=== PATIENT | female | born 1940 | race Hispanic/Latino ===

== ENCOUNTER → 2017-07-05 | Outpatient (CLI) | payer MEDICARE, OTHER ==
[~2017-07-05] MED LIST: AEC81 PO; AMIO200T44 PO; CLOP75TA14 PO; GLUC-145 PO; MAGN250T2 PO; METO-408 PO; PANT40TA PO; ROSU20TA PO
== END | disposition home or self-care (01) ==
LOC: SHCH 10:29
PROVIDERS: ATTEND Internal Medicine Cardiovascular Disease
DX: I73.9 Peripheral vascular disease, unspecified (principal)
CPT/HCPCS: 93925

== ENCOUNTER → 2017-09-28 | Outpatient (CLI) | payer MEDICARE, OTHER | END | disposition home or self-care (01) | LOC: SLP 20:17 | PROVIDERS: ATTEND Internal Medicine Cardiovascular Disease | DX: G47.30 Sleep apnea, unspecified (principal); G47.00 Insomnia, unspecified; I25.10 Atherosclerotic heart disease of native coronary artery without angina pectoris; I10 Essential (primary) hypertension | CPT/HCPCS: 95810 ==

== ENCOUNTER → 2017-10-06 | Outpatient (CLI) | payer MEDICARE, OTHER | END | disposition home or self-care (01) | LOC: SLP 20:18 | PROVIDERS: ATTEND Internal Medicine Cardiovascular Disease | DX: G47.00 Insomnia, unspecified (principal); G47.30 Sleep apnea, unspecified | CPT/HCPCS: 95811 ==

== ENCOUNTER → 2019-11-29 | Outpatient (CLI) | payer MEDICARE, OTHER ==
[~2019-11-29] MED LIST changes: -AMIO200T44 PO; -CLOP75TA14 PO; +DOXY100T2 PO; -MAGN250T2 PO; -METO-408 PO; +METO50TA18 PO; -PANT40TA PO; -ROSU20TA PO; +ROSU20TA23 PO
== END | disposition home or self-care (01) ==
LOC: SHCH 10:12
PROVIDERS: ATTEND Internal Medicine Cardiovascular Disease
DX: I08.3 Combined rheumatic disorders of mitral, aortic and tricuspid valves (principal); I65.23 Occlusion and stenosis of bilateral carotid arteries; I25.10 Atherosclerotic heart disease of native coronary artery without angina pectoris
CPT/HCPCS: 93306; 93356; 93880

== ENCOUNTER 2021-02-18 06:06 | Emergency (ER) | payer MEDICARE, OTHER ==
[~2021-02-18] VITALS: Ht 162.6 cm; Wt 70.3 kg
[2021-02-18] MEDS ORDERED: HYDROCODONE/ACETAMINOPHEN 5/325 MG TAB PO SCH (07:30)
[2021-02-18] MEDS ORDERED: TETANUS/DIPHTHERIA TOXOID [ADULT] 0.5 ML VIAL IM ONE (08:46)
[2021-02-18] MEDS ORDERED: TETANUS/DIPHTHERIA TOXOID [ADULT] 0.5 ML VIAL IM SCH (09:00)
[2021-02-18 09:11] VITALS: BP 133/78
== END 2021-02-18 09:31 | disposition home or self-care (01) ==
LOC: EDH 06:06
DX: S81.812A Laceration without foreign body, left lower leg, initial encounter (principal); S61.511A Laceration without foreign body of right wrist, initial encounter; S63.501A Unspecified sprain of right wrist, initial encounter; S00.83XA Contusion of other part of head, initial encounter; I10 Essential (primary) hypertension; Z79.82 Long term (current) use of aspirin; Z79.899 Other long term (current) drug therapy; W10.9XXA Fall (on) (from) unspecified stairs and steps, initial encounter; Z95.0 Presence of cardiac pacemaker; Y93.89 Activity, other specified; Y92.89 Other specified places as the place of occurrence of the external cause; Y99.9 Unspecified external cause status
CPT/HCPCS: 70450; 70486; 73100; 90471; 90714

== ENCOUNTER 2021-04-02 05:50 | Day surgery (SDC) | payer MEDICARE, OTHER ==
[2021-04-01 13:43] VITALS: BP 152/85
[2021-04-02] VITALS (11 sets, daily range): BP systolic 110–189; BP diastolic 47–82
[~2021-04-02] VITALS: Ht 162.6 cm; Wt 69.9 kg
[~2021-04-02 05:50] MED LIST changes: -AEC81 PO; -DOXY100T2 PO; -GLUC-145 PO; +METO100T14 PO; -METO50TA18 PO
[2021-04-02] MEDS ORDERED: ISOVUE-M 200 20 ML VIAL IT ONE (07:00)
== END 2021-04-02 12:10 | disposition home or self-care (01) ==
LOC: DAH 05:50
PROVIDERS: ATTEND Neurological Surgery
DX: M51.16 Intervertebral disc disorders with radiculopathy, lumbar region (principal); M48.062 Spinal stenosis, lumbar region with neurogenic claudication; M43.17 Spondylolisthesis, lumbosacral region; M47.26 Other spondylosis with radiculopathy, lumbar region
CPT/HCPCS: 62304; 72132; A4663; A6260; Q9966

== ENCOUNTER 2021-04-11 10:00 | Observation (INO) | payer MEDICARE, OTHER ==
[~2021-04-11] VITALS: Ht 165.1 cm; Wt 69.2 kg
[2021-04-11 12:25] LABS: BASOPHILS % (AUTO) 0.8 % (0.0-5.0); HEMATOCRIT 39.6 % (36-48); LYMPHOCYTES % (AUTO) 37.7 % (21.0-51.0); MEAN CORPUSCULAR HEMOGLOBIN 30.1 pg (27.0-33.0); MEAN CORPUSCULAR HGB CONC 30.8 g/dL (32.0-36.0); MEAN CORPUSCULAR VOLUME 97.8 fL (79-99); MONOCYTES % (AUTO) 8.4 % (3.0-13.0); PLATELET COUNT (AUTO) 137 K/uL (130-400); RED BLOOD CELL COUNT(AUTO) 4.05 MIL/uL (4.00-5.50); RED CELL DISTRIBUTION WIDTH 12.9 % (11.0-15.5); WHITE BLOOD COUNT (AUTO) 7.1 K/uL (4.8-10.8)
[2021-04-11 12:50] LABS: CREATININE 0.8 mg/dL (0.5-1.5); POTASSIUM 4.4 mmol/L (3.5-5.1)
[2021-04-15 09:45] VITALS: BP 161/83
[2021-04-15] MEDS ORDERED: LOSA100T58 PO (10:03)
[2021-04-15] MEDS ORDERED: AEC81 PO (10:03)
[2021-04-16] VITALS (21 sets, daily range): BP systolic 139–166; BP diastolic 59–95
[2021-04-16] MEDS: CEFAZOLIN SODIUM 1 GM VIAL IVP SCH ×2 (06:00→08:45)
[2021-04-16] MEDS ORDERED: LACTATED RINGERS 1000ML 1,000 ML IV ONE (06:22)
[2021-04-16] MEDS ORDERED: CEFAZOLIN SODIUM 1 GM VIAL ONE (06:52)
[2021-04-16] MEDS ORDERED: MORPHINE PF 100MG/10ML AMP IV ONE (06:52)
[2021-04-16] MEDS ORDERED: THROMBIN-JMI 20000 UNIT KIT TP ONE (06:52)
[2021-04-16] MEDS ORDERED: SUCCINYLCHOLINE CHLORIDE 20 MG/ML 10 ML VIAL ONE (07:40)
[2021-04-16] MEDS ORDERED: LIDOCAINE PF 100MG/5ML (2%) SYRINGE 5ML ONE (07:40)
[2021-04-16] MEDS ORDERED: GLYCOPYRROLATE 1 MG/5 ML SYRINGE ONE (07:41)
[2021-04-16] MEDS ORDERED: NEOSTIGMINE 5MG/5ML SYR IV ONE (07:41)
[2021-04-16] MEDS ORDERED: MIDAZOLAM HCL 1 MG/ML 2ML VIAL ONE (07:41)
[2021-04-16] MEDS ORDERED: PROPOFOL 10 MG/ML 20ML VIAL IV ONE (07:41)
[2021-04-16] MEDS ORDERED: DEXAMETHASONE SOD PHOSPHATE 10MG/ML 1ML VIAL ONE ×2 (07:41→08:18)
[2021-04-16] MEDS ORDERED: ROCURONIUM 10MG/1ML SYR 10 MG/ML ML ONE ×2 (07:42→11:04)
[2021-04-16] MEDS ORDERED: ONDANSETRON 4MG INJ ONE (07:42)
[2021-04-16] MEDS ORDERED: FENTANYL CITRATE PF 50 MCG/1 ML 2ML VIAL ONE (07:51)
[2021-04-16] MEDS ORDERED: PHENYLEPHRINE HCL 10 MG/ML 1ML VIAL IV ONE (07:52)
[2021-04-16] MEDS ORDERED: EPHEDRINE SULFATE 50 MG/ML AMPULE ONE (07:57)
[2021-04-16] MEDS ORDERED: BUPIVACAINE/EPI/PF 0.25% 30ML VIAL IJ SCH (08:16)
[2021-04-16] MEDS ORDERED: GENTAMICIN 80 MG/NS 100 ML PB 100 ML IV ONE (10:38)
[2021-04-16] MEDS ORDERED: ESMOLOL HCL 10 MG/ML 10 ML VIAL ONE (11:16)
[2021-04-16] MEDS ORDERED: PROMETHAZINE HCL 25 MG/ML 1ML AMPULE IM PRN (11:30)
[2021-04-16] MEDS ORDERED: HYDROCODONE/ACETAMINOPHEN 5/325 MG TAB PO PRN (11:30)
[2021-04-16] MEDS: LACTATED RINGERS 1000ML 1,000 ML IV SCH ×2 (11:30→21:17)
[2021-04-16] MEDS ORDERED: 0.9%NACL 10ML VIAL IVP PRN (11:30)
[2021-04-16] MEDS ORDERED: MORPHINE 2 MG SYG IVP PRN (11:30)
[2021-04-16] MEDS ORDERED: DEXAMETHASONE SOD PHOSPHATE 4 MG/ML 1ML VIAL IVP SCH (14:00)
[2021-04-16] MEDS ORDERED: CEFAZOLIN SODIUM 1 GM VIAL IVP SCH (17:00)
[2021-04-16] MEDS: DEXAMETHASONE SOD PHOSPHATE 4 MG/ML 1ML VIAL IVP SCH ×2 (17:22→23:57)
[2021-04-16] MEDS ORDERED: METOPROLOL TARTRATE 50 MG TAB PO SCH (21:00)
[2021-04-16] MEDS ORDERED: ATORVASTATIN 40 MG TABLET PO SCH (21:00)
[2021-04-17] VITALS: BP 143/59
[2021-04-17 04:00] VITALS: BP 115/58
[2021-04-17] MEDS: DEXAMETHASONE SOD PHOSPHATE 4 MG/ML 1ML VIAL IVP SCH (04:12)
[2021-04-17 07:51] VITALS: BP 98/66
[2021-04-17] MEDS ORDERED: LOSARTAN 100 MG TABLET PO SCH (09:00)
[2021-04-17] MEDS ORDERED: ASPIRIN 81 MG EC TAB PO SCH (09:00)
== END 2021-04-17 10:48 | disposition home or self-care (01) ==
LOC: DAHIP 04-16 06:07 → 4AH 04-16 13:05
PROVIDERS: ADMIT Neurological Surgery; ATTEND Neurological Surgery
DX: M48.061 Spinal stenosis, lumbar region without neurogenic claudication (principal); Z20.822 Contact with and (suspected) exposure to COVID-19; M54.16 Radiculopathy, lumbar region; I10 Essential (primary) hypertension; E78.5 Hyperlipidemia, unspecified; Z95.1 Presence of aortocoronary bypass graft; Z95.0 Presence of cardiac pacemaker; Z79.899 Other long term (current) drug therapy
CPT/HCPCS: 36415; 63047; 63048 ×2; 71045; 72020; 80048; 85025; 87635; 96374; 96375; 96376; A4215; A4221; A4222; A4223; A4344; A4600; A4649 ×3; A4663; A4930; A5113; A6260; G0378 ×23; J0330; J0690 ×3; J1100 ×4; J1580; J2001; J2250; J2274; J2370; J2405; J2704; J2710; J3010; J3490 ×4; J7120 ×3

== ENCOUNTER → 2022-09-24 | Outpatient (CLI) | payer MEDICARE ==
[~2022-09-24] MED LIST changes: +AEC81 PO; +LOSA100T58 PO
== END | disposition home or self-care (01) ==
LOC: SHCH 08:11
PROVIDERS: ATTEND Internal Medicine Cardiovascular Disease
DX: I08.3 Combined rheumatic disorders of mitral, aortic and tricuspid valves (principal); I65.23 Occlusion and stenosis of bilateral carotid arteries; R01.1 Cardiac murmur, unspecified; I10 Essential (primary) hypertension; E78.5 Hyperlipidemia, unspecified; I70.0 Atherosclerosis of aorta; R60.0 Localized edema; R06.02 Shortness of breath
CPT/HCPCS: 93306; 93880; 93970; 93978

== ENCOUNTER → 2022-10-27 | Outpatient (CLI) | payer MEDICARE ==
[~2022-10-27] MED LIST changes: -LOSA100T58 PO; +LOSA100T59 PO; +REGADENOSON 0.4 MG/5 ML PF SYG IVP ONE; +REGADENOSON 0.4 MG/5 ML PF SYG IVP SCH
== END | disposition home or self-care (01) ==
LOC: SHCH 08:03
PROVIDERS: ATTEND Internal Medicine Cardiovascular Disease
DX: I25.10 Atherosclerotic heart disease of native coronary artery without angina pectoris (principal); Z95.1 Presence of aortocoronary bypass graft; Z95.5 Presence of coronary angioplasty implant and graft; Z79.82 Long term (current) use of aspirin; Z79.899 Other long term (current) drug therapy
CPT/HCPCS: 78452; 96374; 93017; J2785; A9500 ×2

== ENCOUNTER → 2023-12-31 | Outpatient (CLI) | payer MEDICARE ==
[~2023-12-31] MED LIST changes: -REGADENOSON 0.4 MG/5 ML PF SYG IVP ONE; -REGADENOSON 0.4 MG/5 ML PF SYG IVP SCH
== END | disposition home or self-care (01) ==
LOC: RAH 13:33
PROVIDERS: ATTEND Internal Medicine
DX: I13.10 Hypertensive heart and chronic kidney disease without heart failure, with stage 1 through stage 4 chronic kidney disease, or unspecified chronic kidney disease (principal); N18.9 Chronic kidney disease, unspecified
CPT/HCPCS: 93931

== ENCOUNTER → 2024-02-21 | Outpatient (CLI) | payer MEDICARE | END | disposition home or self-care (01) | LOC: SHCH 10:54 | PROVIDERS: ATTEND Internal Medicine Cardiovascular Disease | DX: I08.3 Combined rheumatic disorders of mitral, aortic and tricuspid valves (principal); I11.9 Hypertensive heart disease without heart failure; E78.5 Hyperlipidemia, unspecified; Z95.0 Presence of cardiac pacemaker; Z95.1 Presence of aortocoronary bypass graft | CPT/HCPCS: 93306 ==

== ENCOUNTER → 2024-03-22 | Outpatient (CLI) | payer MEDICARE | END | disposition home or self-care (01) | LOC: SHCH 08:34 | PROVIDERS: ATTEND Internal Medicine Cardiovascular Disease | DX: I71.40 Abdominal aortic aneurysm, without rupture, unspecified (principal) | CPT/HCPCS: 93978 ==